=== PATIENT | female | born 1970 | race Two or more races ===

== ENCOUNTER 2019-05-28 11:15 | Inpatient (IN) | payer OTHER ==
[~2019-05-28] VITALS: Ht 154.9 cm; Wt 49.9 kg
[2019-05-28] MEDS ORDERED: CLONAZEPAM1 MG PO (13:21)
[2019-05-28] MEDS ORDERED: CYMBALTA30 MG PO (13:21)
[2019-05-28] MEDS ORDERED: BUSPIRONE HCL5 MG PO (13:21)
[2019-05-28] MEDS ORDERED: PROTONIX40 MG PO (13:21)
[2019-05-28] MEDS ORDERED: [UNRECOGNIZED DRUG - OTHER] (13:22)
[2019-05-28] MEDS ORDERED: NEURONTIN300 MG PO (13:22)
[2019-06-06] MEDS ORDERED: CHLORDIAZEPOXI1 EACH (10:23)
== END 2019-06-07 09:59 | disposition home or self-care (01) | DRG 735 ==
LOC: O/R 06-06 07:43 → OB/GYN 06-06 11:15
PROVIDERS: ADMIT Obstetrics & Gynecology Gynecologic Oncology
PROC: 0UT9FZL Resection of Uterus, Supracervical, Via Natural or Artificial Opening With Percutaneous Endoscopic Assistance (ICD-10-PCS; 2019-06-06)
PROC: 0UT7FZZ Resection of Bilateral Fallopian Tubes, Via Natural or Artificial Opening With Percutaneous Endoscopic Assistance (ICD-10-PCS; 2019-06-06)
PROC: 0UT04ZZ Resection of Right Ovary, Percutaneous Endoscopic Approach (ICD-10-PCS; 2019-06-06)
PROC: 07TC4ZZ Resection of Pelvis Lymphatic, Percutaneous Endoscopic Approach (ICD-10-PCS; principal; 2019-06-06 18:00)
DX: D06.7 Carcinoma in situ of other parts of cervix (principal); D25.1 Intramural leiomyoma of uterus; N72 Inflammatory disease of cervix uteri